=== PATIENT | female | born 1955 | race Caucasian/White ===

== ENCOUNTER 2017-02-22 11:51 | Day surgery (SDC) | payer OTHER ==
[~2017-02-22] VITALS: Ht 160 cm; Wt 69.1 kg
[2017-02-22 12:30] VITALS: Ht 160 cm; Wt 69.1 kg
[2017-02-22] MEDS ORDERED: BENA10TA48 PO (12:38)
[2017-02-22] MEDS ORDERED: METF500T4 PO (12:38)
[2017-02-22] MEDS ORDERED: ATOR40TA68 PO (12:38)
[2017-02-22 13:05] VITALS: BP 114/63; PULSE 77; RESP 16
[2017-02-22] MEDS ORDERED: FENTAnyl 50 MCG/ML VIAL ONE (13:36)
[2017-02-22] MEDS ORDERED: MIDAZOLAM 1 MG/ML 2 ML INJ ONE (13:36)
[2017-02-22 14:00] VITALS: BP 103/61; PULSE 75; RESP 18
--- NOTE | 2017-02-22 14:07 | GILP ---
DATE OF PROCEDURE: 02/22/2017 NAME OF PROCEDURE: Colonoscopy. SURGEON: Denisa Rios MD PREOPERATIVE DIAGNOSIS: Screening colonoscopy. POSTOPERATIVE DIAGNOSES: 1. Colonoscopy all the way to the cecum. 2. Internal hemorrhoids. 3. No colon neoplasm was identified. INDICATION FOR THE PROCEDURE: Ms. Radha Miller is a 61-year-old female patient who was scheduled for screening colonoscopy. The procedure and possible complications were well explained to the patient. The patient understood and consented to the procedure. DESCRIPTION OF PROCEDURE: Under the influence of fentanyl and Versed, the colonoscope was carefully introduced in the rectum, and under direct vision, it was advanced all the way to the cecum. FINDINGS: The patient had internal hemorrhoids. No colon neoplasm was identified. She tolerated the procedure very well, and there was no complication from the procedure. At the end of the procedures, she was awake with stable vital signs, and she was discharged home to the care o f her family. IMPRESSION: 1. Colonoscopy all the way to the cecum. 2. Internal hemorrhoids. 3. No colon neoplasm was identified. PLAN: Next screening colonoscopy in 10 years. Dictated By: DENISA ARCEO/LEONEL Conf#: [id number] DID#: [id number]
== END 2017-02-22 15:46 | disposition home or self-care (01) ==
LOC: GIL 11:51
PROVIDERS: ATTEND Internal Medicine Gastroenterology
DX: Z12.11 Encounter for screening for malignant neoplasm of colon (principal); K64.8 Other hemorrhoids; E11.9 Type 2 diabetes mellitus without complications
CPT/HCPCS: 45380; 82962; J2250; J3010; Z7610